=== PATIENT | female | born 1940 | race Caucasian/White ===

== ENCOUNTER 2019-03-06 11:30 | Outpatient (CLI) | payer MEDICARE, OTHER ==
--- NOTE | 2019-03-06 12:20 | RAD ---
2 VIEWS CHEST: Date: 03/06/2019 COMPARISON: 02/16/2013. HISTORY: Shortness of breath. FINDINGS: Increased linear interstitial density and pulmonary hyperinflation noted suggesting COPD in the prope r clinical setting. Stable midline sternotomy wires. No pneumothorax, pleural fluid, focal consolidat ion, or alveolar edema. IMPRESSION: Findings suggesting COPD. No focal consolidation or alveolar edema. POS: [facility]
== END 2019-03-06 11:31 | disposition home or self-care (01) ==
LOC: RAD 11:30
PROVIDERS: ATTEND Internal Medicine Pulmonary Disease
DX: R06.00 Dyspnea, unspecified (principal)
CPT/HCPCS: 71046